=== PATIENT | male | born 1985 | race Caucasian/White ===

== ENCOUNTER 2020-07-11 20:33 | Emergency (ER) | payer BC, OTHER ==
--- NOTE | 2020-07-11 20:47 | PDOC ---
History of Present Illness - General Chief Complaint: Chest Pain Stated Complaint: CHEST PAIN Time Seen by Provider: 07/11/20 20:47 History Source: Patient, Family - History of Present Illness Initial Comments: 07/11/20 23:32 34M w/hx hyperthyroidism, hyperlipidemia p/w 3 days of ongoing sternal 5/10 con stant chest pain. He reports that today while eating dinner he began to experience tingling and numbness in his L arm. He denies any similar prior episodes. He reports nausea over the last 3 days without vomiting, fevers, chills, cough. He reports significant life stressors in the last several weeks, including his mother's recent late stage cancer diagnosis and seizure, power outages in the home. The patient works as an ED nurse. Past History - Medical History Allergies/Adverse Reactions: Allergies Allergy/AdvReac Type Severity Reaction Status Date / Time No Known Allergies Allergy Verified 07/11/20 20:45 Home Medications: Ambulatory Orders NK [No Known Home Medication] 07/11/20 COPD: No Thyroid Disease: Yes (hyper) Other medical history: high triglicerides - Psycho-Social/Smoking History Smoking History: Current some day smoker Information on smoking cessation initiated: No - Substance Abuse Hx (Audit-C & DAST Scrn) How often the patient has a drink containing alcohol: Never Score: In Men: 4 or > Positive; In Women: 3 or > Positive: 0 Screen Result (Pos requires Nsg. Audit-10AR): Negative In the last yr the pt used illegal drug/Rx for NonMed reason: Yes Score: Yes response is considered Positive: 1 Screen Result (Positive result requires Nsg. DAST-10): Positive Review of Systems - Review of Systems Able to Perform ROS?: Yes Comments:: 07/11/20 23:59 GENERAL/CONSTITUTIONAL: No fever or chills. No weakness. HEAD, EYES, EARS, NOSE AND THROAT: No change in vision. No ear pain or discharge. No sore throat. CARDIOVASCULAR: Chest pain. No shortness of breath RESPIRATORY: No cough, wheezing, or hemoptysis. GASTROINTESTINAL: Nausea. No vomiting, diarrhea or constipation. GENITOURINARY: No dysuria, frequency, or change in urination. MUSCULOSKELETAL: No joint or muscle swelling or pain. No neck or back pain. SKIN: No rash NEUROLOGIC: No headache, vertigo, loss of consciousness, or change in strength/sensation. ENDOCRINE: No increased thirst. No abnormal weight change HEMATOLOGIC/LYMPHATIC: No anemia, easy bleeding, or history of blood clots. ALLERGIC/IMMUNOLOGIC: No hives or skin allergy. *Physical Exam - Vital Signs Last Vital Signs Temp Pulse Resp BP Pulse Ox 98.4 F 87 18 141/85 99 07/11/20 20:42 07/11/20 20:42 07/11/20 20:42 07/11/20 20:42 07/11/20 20:42 - Physical Exam 07/12/20 00:00 GENERAL: Awake, alert, and fully oriented, in no acute distress HEAD: No signs of trauma, normocephalic, atraumatic EYES: PERRLA, EOMI, sclera anicteric, conjunctiva clear ENT: Auricles normal inspection, hearing grossly normal, nares patent, orop harynx clear without exudates. Moist mucosa NECK: Normal ROM, supple, no lymphadenopathy, JVD, or masses LUNGS: No distress, speaks full sentences, clear to auscultation bilaterally HEART: Regular rate and rhythm, normal S1 and S2, no murmurs, rubs or gallops, peripheral pulses normal and equal bilaterally. ABDOMEN: Soft, nontender, normoactive bowel sounds. No guarding, no rebound. No masses EXTREMITIES : Normal inspection, Normal range of motion, no edema. No clubbing or cyanosis NEUROLOGICAL: Cranial nerves II through XII grossly intact. Normal speech, normal gait, no focal sensorimotor deficits SKIN: Warm, Dry, normal turgor, no rashes or lesions noted Heart Score/ECG Review - History History: Moderately suspicious - Electrocardiogram EKG: Non specific repolarization disturbance - Age Age: </= 45 - Risk Factors Risk Factors Heart Score: Yes Hx Hypercholesterolemia, Yes Smoking History, Yes Positive family hx of cardiac disease Based on the list above the patient has:: >/=3 risk factors or Hx atherosclerotic disease - Troponin Troponin: </= normal limit - Score Heart Score - Total: 4 ED Treatment Course - LABORATORY CBC & Chemistry Diagram: 07/11/20 21:35 07/11/20 21:35 Medical Decision Making - Medical Decision Making 07/12/20 00:00 34M w/hx hyperthyroidism, hyperlipidemia p/w 3 days of nausea, chest pain with recent significant stressors. Ddx ACS given risk factors, persistence of pain. GERD possible given association with nausea. Plan: CBC CMP EKG CXR Troponin I x2 Lipase Acetaminophen 1g IV Zofran 4mg Pepcid Dispo: Pending --- Initial troponin negative. Plan for repeat trop. If pain persists with second trop, plan for cardiac obs. Patient signed out to night team. Discharge - Discharge Information Problems reviewed: Yes Clinical Impression/Diagnosis: Chest pain - Follow up/Referral Referrals: Gerri Lorenzo MD [Primary Care Provider] - - Patient Discharge Instructions - Post Discharge Activity
[2020-07-11 20:50] VITALS: BMI 24.5
[2020-07-11] MEDS ORDERED: ACETAMINOPHEN 1000 MG/100 ML VIAL (NON FORMULARY) IVPB ONE (21:08)
[2020-07-11] MEDS ORDERED: ONDANSETRON 4 MG/2 ML VIAL IVPUSH ONE (21:08)
[2020-07-11] MEDS ORDERED: LACTATED RINGERS SOLUTION 1000 ML INFUS.BAG IV ONE (21:08)
[2020-07-11] MEDS ORDERED: FAMOTIDINE 20 MG/50 ML IVPB 20 MG/50 ML MG IVPB ONE ×2 (21:08→21:19)
[2020-07-11] MEDS ORDERED: ACETAMINOPHEN INJECTION 100 ML IVPB ONE (21:19)
[2020-07-11 21:53] LABS: BASO % 0.7 % (0-2.0); EOS % 3.2 % (0-4.5); HEMATOCRIT 43.5 % (35.4-49); HEMOGLOBIN 14.5 GM/dL (11.7-16.9); LYMPH % 43.8 % (8-40); MCH 28.6 pg (25.7-33.7); MCHC 33.4 g/dl (32.0-35.9); MEAN CELL VOLUME 85.6 fl (80-96); MEAN PLT VOLUME 7.7 fl (7.5-11.1); MONO % 5.9 % (3.8-10.2); NEUT % 46.4 % (42.8-82.8); PLATELET COUNT 236 K/MM3 (134-434); RBC 5.08 M/mm3 (4.00-5.60); RDW 13.5 % (11.9-15.9); WHITE BLOOD COUNT 8.5 K/mm3 (4.0-10.0)
[2020-07-11 22:17] LABS: ALK PHOS 58 U/L (45-117); ANION GAP 9 MMOL/L (8-16); BILIRUBIN,TOTAL 0.2 mg/dL (0.2-1); BLOOD UREA NITROGEN 11.2 mg/dL (7-18); CALCIUM 8.9 mg/dL (8.5-10.1); CHLORIDE 106 mmol/L (98-107); CO2 23 mmol/L (21-32); CREATININE 1.2 mg/dL (0.55-1.3); GLUCOSE,RANDOM 95 mg/dL (74-106); POTASSIUM 3.8 mmol/L (3.5-5.1); SGOT/AST 18 U/L (15-37); SGPT/ALT 29 U/L (13-61); SODIUM 138 mmol/L (136-145); TOT PROT 7.2 g/dl (6.4-8.2)
[2020-07-12 00:01] LABS: LIPASE 769 U/L (73-393)
--- NOTE | 2020-07-12 00:07 | PDOC ---
Documentation entered by Apolonia Caraballo SCRIBE, acting as scribe for Florida Hoover MD. Florida Hoover MD: This documentation has been prepared by the dbibeIlya Ana, SCRIBE, under my direction and personally reviewed by me in its entirety. I confirm that the documentation accurately reflects all work, treatment, procedures, and medical decision making performed by me. Attending Attestation - Resident Resident Name: DaynaHudson - ED Attending Attestation I have performed the following: I have examined & evaluated the patient, The case was reviewed & discussed with the resident, I agree w/resident's findings & plan, Exceptions are as noted - HPI HPI: 07/11/20 21:06 Patient is a 34 year old male with a significant past medical history of HLD who presents to the ED with nausea and chest pain x3 days. Patient stated he has a pain level of 5/10 sternal pain constant for 3 days. Patient reports he was eating dinner earlier this evening when he began to feel a tingling sensation radiate down his left arm which prompted ED arrival. He has never had similar pain before. Denies any exacerbating or relieving sxs. Denies associated dizziness, diaphoresis, SOB, abd pain, mir. Reports father had SD in 60s. Pt uses tobacco, denies drug use. Reports recent stressors including mom with stage 4 ca. Patient denies focal weakness/numbness, urinary sxs, diarrhea, abd pain, recent travel. Allergies: NKDA - Physicial Exam PE: 07/12/20 00:01 GENERAL: Awake, alert, and fully oriented, in no acute distress EYES: PERRLA, EOMI, sclera anicteric, conjunctiva clear ENT: Oropharynx clear without exudates. Moist mucosa NECK: Normal ROM, supple, no lymphadenopathy, JVD, or masses LUNGS: Breath sounds equal, clear to auscultation bilaterally. No wheezes, and no crackles HEART: Regular rate and rhythm, normal S1 and S2, no murmurs, rubs or gallops ABDOMEN: Soft, nontender, normoactive bowel sounds. No guarding, no rebound. No masses EXTREMITIES: Normal range of motion, no edema. No clubbing or cyanosis. No cords, erythema, or tenderness NEUROLOGICAL: Normal speech, cranial nerves intact, equal strength and sensation b/l SKIN: Warm, Dry, normal turgor, no rashes or lesions noted. - Medical Decision Making 07/11/20 23:02 34yo M presents to the ED with 3 days of CP Pt points to lower sternal, epigastric area as location of pain Vitals with mildly elevated BP Exam unremarkable Initial EKG wth incomplete RBBB, otherwise non ischemic. Repeat EKG stable DDx includes ACS vs MSK pain vs enteritis vs pancreatitis vs PNA vs myocarditis vs costochonditis vs GERD Heart score is 3 given +family hx, tobacco use, and hx hyperlipidemia CXR negative on my read Plan for labs, trop x2, consider tele obs admission if persistent pain 07/12/20 00:19 Labs with negative trop, mild lipase elevation but not 3x upper limit of normal Denies etoh use REports pain is improved at this time Given crampy nature of pain, could be enteritis vs ACS 2nd trop is pending If persistent pain, or 2nd trop +, admit Case signed out to Dr. Dougherty for further mgmt/dispo Heart Score/ECG Review - History History: Moderately suspicious - Electrocardiogram EKG: Non specific repolarization disturbance - Age Age: </= 45 - Risk Factors Risk Factors Heart Score: Yes Hx Hypercholesterolemia, Yes Smoking History, Yes Positive family hx of cardiac disease Based on the list above the patient has:: >/=3 risk factors or Hx atherosclerotic disease - Troponin Troponin: </= normal limit - Score Heart Score - Total: 4 #1 07/12/20 00:06 Twelve-lead EKG was performed and reviewed by me. Normal sinus rhythm, rate 82. Normal axis. Incomplete right bundle branch block. No ST elevations. Isolated T wave inversion in lead III. #2 07/12/20 00:06 Twelve-lead EKG was performed and reviewed by me. Sinus bradycardia, rate 54. Normal axis. Incomplete right bundle branch block. Again isolated T wave inversion in lead III. No significant change compared to EKG done earlier today. Discharge - Discharge Information Problems reviewed: Yes Clinical Impression/Diagnosis: Nausea, Tingling Chest pain Qualifiers: Chest pain type: unspecified Qualified Code(s): R07.9 - Chest pain, unspecified Condition: Improved Disposition: HOME - Follow up/Referral Referrals: Gerri Lorenzo MD [Primary Care Provider] - Patrick Rivero MD [Staff Physician] - - Patient Discharge Instructions Patient Printed Discharge Instructions: DI for Atypical Chest Pain Additional Instructions: Your workup did not show anything concerning Limit your coffee intake Take tylenol if you have pain Follow up with your primary care doctor and referred marketing manager Dr Rivero - Post Discharge Activity
--- NOTE | 2020-07-12 00:49 | PDOC ---
*Physical Exam - Vital Signs Last Vital Signs Temp Pulse Resp BP Pulse Ox 98.4 F 87 18 141/85 99 07/11/20 20:42 07/11/20 20:42 07/11/20 20:42 07/11/20 20:42 07/11/20 20:42 ED Treatment Course - LABORATORY CBC & Chemistry Diagram: 07/11/20 21:35 07/11/20 21:35 - ADDITIONAL ORDERS Additional order review: Laboratory Results 07/11/20 21:35 Sodium 138 Potassium 3.8 Chloride 106 Carbon Dioxide 23 Anion Gap 9 BUN 11.2 Creatinine 1.2 Est GFR (CKD-EPI)AfAm 89.62 Est GFR (CKD-EPI)NonAf 77.33 Random Glucose 95 Calcium 8.9 Total Bilirubin 0.2 AST 18 ALT 29 Alkaline Phosphatase 58 Troponin I < 0.02 Total Protein 7.2 Albumin 4.0 Lipase 769 H 07/11/20 21:35 RBC 5.08 MCV 85.6 MCHC 33.4 RDW 13.5 MPV 7.7 Neutrophils % 46.4 Lymphocytes % 43.8 H Monocytes % 5.9 Eosinophils % 3.2 Basophils % 0.7 - Medications Given in the ED: ED Medications Discontinued Medications Generic Name Dose Route Start Last Admin Trade Name Freq PRN Reason Stop Dose Admin Acetaminophen 1,000 mg 07/11/20 21:08 07/11/20 21:36 Ofirmev Injection - IVPB 07/11/20 21:09 1,000 mg ONCE ONE Administration Famotidine/Sodium Chloride 20 mg in 50 mls @ 100 mls/hr 07/11/20 21:08 07/11/20 21:36 Pepcid 20 Mg Premixed Ivpb - IVPB 07/11/20 21:37 100 mls/hr ONCE ONE Administration Lactated Ringer's 1,000 ml 07/11/20 21:08 07/11/20 21:36 Lactated Ringers Solution IV 07/11/20 21:09 1,000 ml ONCE ONE Administration Ondansetron HCl 4 mg 07/11/20 21:08 07/11/20 21:37 Zofran Injection IVPUSH 07/11/20 21:09 4 mg ONCE ONE Administration Medical Decision Making - Medical Decision Making 07/12/20 00:49 CXR - clear lung bustillo 34M w/hx hyperthyroidism, hyperlipidemia p/w 3 days of nausea, chest pain with recent significant stressors. Ddx ACS given risk factors, persistence of pain. GERD possible given association with nausea. GERD (drink lots of coffee) vs MSK. Low concern for ACS (neg tropx2, nonconcerning EKG) DC w cards, PCP f/u Discharge - Discharge Information Problems reviewed: Yes Clinical Impression/Diagnosis: Chest pain Qualifiers: Chest pain type: unspecified Qualified Code(s): R07.9 - Chest pain, unspecified Condition: Improved Disposition: HOME - Follow up/Referral Referrals: Gerri Lorenzo MD [Primary Care Provider] - Patrick Rivero MD [Staff Physician] - - Patient Discharge Instructions Patient Printed Discharge Instructions: DI for Atypical Chest Pain Additional Instructions: Your workup did not show anything concerning Limit your coffee intake Take tylenol if you have pain Follow up with your primary care doctor and referred media center director school Dr Rivero - Post Discharge Activity
--- NOTE | 2020-07-12 00:54 | PDOC ---
*Physical Exam - Vital Signs Last Vital Signs Temp Pulse Resp BP Pulse Ox 98.4 F 87 18 141/85 99 07/11/20 20:42 07/11/20 20:42 07/11/20 20:42 07/11/20 20:42 07/11/20 20:42 ED Treatment Course - LABORATORY CBC & Chemistry Diagram: 07/11/20 21:35 07/11/20 21:35 - ADDITIONAL ORDERS Additional order review: Laboratory Results 07/11/20 21:35 Sodium 138 Potassium 3.8 Chloride 106 Carbon Dioxide 23 Anion Gap 9 BUN 11.2 Creatinine 1.2 Est GFR (CKD-EPI)AfAm 89.62 Est GFR (CKD-EPI)NonAf 77.33 Random Glucose 95 Calcium 8.9 Total Bilirubin 0.2 AST 18 ALT 29 Alkaline Phosphatase 58 Troponin I < 0.02 Total Protein 7.2 Albumin 4.0 Lipase 769 H 07/11/20 21:35 RBC 5.08 MCV 85.6 MCHC 33.4 RDW 13.5 MPV 7.7 Neutrophils % 46.4 Lymphocytes % 43.8 H Monocytes % 5.9 Eosinophils % 3.2 Basophils % 0.7 - Medications Given in the ED: ED Medications Discontinued Medications Generic Name Dose Route Start Last Admin Trade Name Freq PRN Reason Stop Dose Admin Acetaminophen 1,000 mg 07/11/20 21:08 07/11/20 21:36 Ofirmev Injection - IVPB 07/11/20 21:09 1,000 mg ONCE ONE Administration Famotidine/Sodium Chloride 20 mg in 50 mls @ 100 mls/hr 07/11/20 21:08 07/11/20 21:36 Pepcid 20 Mg Premixed Ivpb - IVPB 07/11/20 21:37 100 mls/hr ONCE ONE Administration Lactated Ringer's 1,000 ml 07/11/20 21:08 07/11/20 21:36 Lactated Ringers Solution IV 07/11/20 21:09 1,000 ml ONCE ONE Administration Ondansetron HCl 4 mg 07/11/20 21:08 07/11/20 21:37 Zofran Injection IVPUSH 07/11/20 21:09 4 mg ONCE ONE Administration Medical Decision Making - Medical Decision Making 07/12/20 00:53 34M w/hx hyperthyroidism, hyperlipidemia p/w 3 days of ongoing sternal 5/10 constant chest pain. ACS vs GERD 2nd trop DC w cards abd pain - ct Discharge - Discharge Information Clinical Impression/Diagnosis: Chest pain - Follow up/Referral Referrals: Gerri Lorenzo MD [Primary Care Provider] - - Patient Discharge Instructions - Post Discharge Activity
[2020-07-12 01:00] VITALS: BP 138/79; PULSE 84; TEMP 98
--- NOTE | 2020-07-12 02:05 | PDOC ---
*Physical Exam - Vital Signs Last Vital Signs Temp Pulse Resp BP Pulse Ox 98.0 F 84 20 138/79 99 07/12/20 01:00 07/12/20 01:00 07/12/20 01:00 07/12/20 01:00 07/12/20 01:00 ED Treatment Course - LABORATORY CBC & Chemistry Diagram: 07/11/20 21:35 07/11/20 21:35 - ADDITIONAL ORDERS Additional order review: Laboratory Results 07/12/20 07/11/20 00:23 21:35 Sodium 138 Potassium 3.8 Chloride 106 Carbon Dioxide 23 Anion Gap 9 BUN 11.2 Creatinine 1.2 Est GFR (CKD-EPI)AfAm 89.62 Est GFR (CKD-EPI)NonAf 77.33 Random Glucose 95 Calcium 8.9 Total Bilirubin 0.2 AST 18 ALT 29 Alkaline Phosphatase 58 Troponin I < 0.02 < 0.02 Total Protein 7.2 Albumin 4.0 Lipase 769 H 07/11/20 21:35 RBC 5.08 MCV 85.6 MCHC 33.4 RDW 13.5 MPV 7.7 Neutrophils % 46.4 Lymphocytes % 43.8 H Monocytes % 5.9 Eosinophils % 3.2 Basophils % 0.7 - Medications Given in the ED: ED Medications Discontinued Medications Generic Name Dose Route Start Last Admin Trade Name Neisha PRN Reason Stop Dose Admin Acetaminophen 1,000 mg 07/11/20 21:08 07/11/20 21:36 Ofirmev Injection - IVPB 07/11/20 21:09 1,000 mg ONCE ONE Administration Famotidine/Sodium Chloride 20 mg in 50 mls @ 100 mls/hr 07/11/20 21:08 07/11/20 21:36 Pepcid 20 Mg Premixed Ivpb - IVPB 07/11/20 21:37 100 mls/hr ONCE ONE Administration Lactated Ringer's 1,000 ml 07/11/20 21:08 07/11/20 21:36 Lactated Ringers Solution IV 07/11/20 21:09 1,000 ml ONCE ONE Administration Ondansetron HCl 4 mg 07/11/20 21:08 07/11/20 21:37 Zofran Injection IVPUSH 07/11/20 21:09 4 mg ONCE ONE Administration Medical Decision Making - Medical Decision Making 07/12/20 02:04 Pt has normal 2nd trop; normal CXR and he is feeling better. He is stable for d/c home 07/12/20 20:29 We received pt on signout. He has epigastric pain; known lipase elevation which will be followed as an outpatient with GI specialist. Pt was endorsed to me so that we could follow serial cardiac enzymes. Discharge - Discharge Information Problems reviewed: Yes Clinical Impression/Diagnosis: Nausea, Tingling Chest pain Qualifiers: Chest pain type: unspecified Qualified Code(s): R07.9 - Chest pain, unspecified Condition: Improved Disposition: HOME - Follow up/Referral Referrals: Gerri Lorenzo MD [Primary Care Provider] - Patrick Rivero MD [Staff Physician] - - Patient Discharge Instructions Patient Printed Discharge Instructions: DI for Atypical Chest Pain Additional Instructions: Your workup did not show anything concerning Limit your coffee intake Take tylenol if you have pain Follow up with your primary care doctor and referred band machine operator Dr Rivero - Post Discharge Activity
--- NOTE | 2020-07-14 21:57 | EKG ---
Test Reason : Blood Pressure : / mmHG Vent. Rate : 054 BPM Atrial Rate : 054 BPM P-R Int : 148 ms QRS Dur : 112 ms QT Int : 428 ms P-R-T Axes : 046 001 008 degrees QTc Int : 405 ms SINUS BRADYCARDIA OTHERWISE NORMAL ECG NO PREVIOUS ECGS AVAILABLE Confirmed by HOSEA MUNOZ MD ([id number]) on 07/14/2020 9:57:10 PM Referred By: Confirmed By:HOSEA MUNOZ MD
--- NOTE | 2020-07-14 21:58 | EKG ---
Test Reason : Blood Pressure : / mmHG Vent. Rate : 082 BPM Atrial Rate : 082 BPM P-R Int : 126 ms QRS Dur : 108 ms QT Int : 370 ms P-R-T Axes : 056 006 019 degrees QTc Int : 432 ms NORMAL SINUS RHYTHM RSR' OR QR PATTERN IN V1 SUGGESTS RIGHT VENTRICULAR CONDUCTION DELAY BORDERLINE ECG NO PREVIOUS ECGS AVAILABLE Confirmed by HOSEA MUNOZ MD ([id number]) on 07/14/2020 9:58:08 PM Referred By: Confirmed By:HOSEA MUNOZ MD
== END 2020-07-12 02:00 | disposition home or self-care (01) ==
LOC: JER 20:33
PROC: 3E033NZ Introduction of Analgesics, Hypnotics, Sedatives into Peripheral Vein, Percutaneous Approach (ICD-10-PCS; principal; 2020-07-11)
PROC: 3E033GC Introduction of Other Therapeutic Substance into Peripheral Vein, Percutaneous Approach (ICD-10-PCS; 2020-07-11)
DX: R07.9 Chest pain, unspecified (principal)
CPT/HCPCS: 36415; 71046-TC-FY; 80053; 83690; 84484; 85025; 93005; 93010; 99285-25; J0131